=== PATIENT | female | born 1985 | race Caucasian/White ===

== ENCOUNTER → 2016-10-04 | Outpatient (REF) ==
[~2016-10-04] MED LIST: ADVIL200 MG PO
== END ==
LOC: ZLAB.WCH 09:00
DX: Z02.89 Encounter for other administrative examinations (principal)

== ENCOUNTER → 2016-11-05 | Outpatient (REF) | LOC: ZLAB.WCH 11:02 | DX: Z01.89 Encounter for other specified special examinations (principal) ==

== ENCOUNTER → 2018-02-16 | Outpatient (REF) | LOC: ZLAB.WCH 08:31 | DX: Z01.89 Encounter for other specified special examinations (principal) ==

== ENCOUNTER → 2021-12-16 | Outpatient (REF) | LOC: ZLAB.WCH 17:41 | DX: Z11.3 Encounter for screening for infections with a predominantly sexual mode of transmission (principal) ==